=== PATIENT | female | born 1975 | race Two or more races ===

== ENCOUNTER 2018-12-08 12:11 | Inpatient (IN) | payer BC ==
[~2018-12-08] VITALS: Ht 177.8 cm; Wt 90.7 kg
[2018-12-08] VITALS (7 sets, daily range): BP systolic 15–122; BP diastolic 43–70
[2018-12-08 12:39] LABS: Eosinophils # (auto) 0.1 uL; Hematocrit 17.8 % (36.0-46.0); Mean Corpuscular Hemoglobin 14.1 pg (28.0-32.0)
[2018-12-08 12:41] LABS: Basophils # (auto) 0.1 uL; Basophils % (auto) 0.9 % (0.0-2.0); Eosinophils % (auto) 1.2 % (0.0-7.0); Lymphocytes % (auto) 17.8 % (10.0-50.0); Mean Corpuscular Hgb Conc. 26.1 g/dL (32.0-36.0); Mean Corpuscular Volume 54.3 fL (80.0-100.0); Monocytes # (auto) 0.4 uL; Monocytes % (auto) 7.7 % (0.0-12.0); Neutrophils # (auto) 4.1 uL; Neutrophils % (auto) 72.4 % (37.0-80.0); Nucleated Red Blood Cells % 1.2 %; Platelet Count (auto) 302 10^3/uL (140-450); Red Blood Cells 3.28 10^6/uL (4.0-5.20); White Blood Cell 5.7 10^3/uL (4.4-10.8)
[2018-12-08 12:49] LABS: Red Cell Distribution Width 21.5 % (11.8-14.3)
[2018-12-08 12:50] LABS: Hemoglobin 4.6 g/dL (12.2-16.2)
[2018-12-08 13:03] LABS: INR 1.09 (0.9-1.15); Partial Thromboplastin Time 22.2 sec (23.64-32.05)
[2018-12-08 13:08] LABS: Albumin 3.9 g/dL (3.4-5.0); Calcium 8.5 mg/dL (8.5-10.1); Potassium 3.7 mmol/L (3.5-5.1)
[2018-12-08 13:12] LABS: BUN/Creatinine Ratio 21.4; Bilirubin, Total 0.9 mg/dL (0.2-1.0); Total Protein 7.9 g/dL (6.4-8.2)
[2018-12-08] MEDS ORDERED: SODIUM CHLORIDE 0.9% 1,000 ML IV ONE (14:00)
[2018-12-08] MEDS ORDERED: NITROGLYCERIN 0.4 MG SL TAB SL PRN (18:15)
[2018-12-08] MEDS ORDERED: ONDANSETRON HCL 4 MG/2 ML VIAL IV PRN (18:15)
[2018-12-08] MEDS ORDERED: HYDROcodone-ACET 5/325MG TAB PO PRN (18:15)
[2018-12-08] MEDS ORDERED: MORPHINE SULF INJ 2 MG/ML SYRINGE 1ML IV PRN (18:15)
[2018-12-08 22:29] LABS: Eosinophils # (auto) 0.1 uL; Eosinophils % (auto) 1.4 % (0.0-7.0); Lymphocytes # (auto) 1.3 uL; White Blood Cell 6.6 10^3/uL (4.4-10.8)
[2018-12-08 22:31] LABS: Basophils # (auto) 0.1 uL; Hematocrit 20.8 % (36.0-46.0); Lymphocytes % (auto) 20.3 % (10.0-50.0); Mean Corpuscular Hemoglobin 16.4 pg (28.0-32.0); Mean Corpuscular Hgb Conc. 27.7 g/dL (32.0-36.0); Monocytes # (auto) 0.6 uL; Monocytes % (auto) 9.4 % (0.0-12.0); Neutrophils # (auto) 4.5 uL; Neutrophils % (auto) 67.9 % (37.0-80.0); Nucleated Red Blood Cells % 0.2 %; Platelet Count (auto) 282 10^3/uL (140-450); Red Blood Cells 3.53 10^6/uL (4.0-5.20)
[2018-12-08 22:55] LABS: Red Cell Distribution Width 27.1 % (11.8-14.3)
[2018-12-08 22:58] LABS: Hemoglobin 5.8 g/dL (12.2-16.2)
[2018-12-09] VITALS (10 sets, daily range): BP systolic 99–131; BP diastolic 47–82
[2018-12-09 06:40] LABS: Basophils # (auto) 0.1 uL; Basophils % (auto) 0.8 % (0.0-2.0); Eosinophils # (auto) 0.1 uL; Lymphocytes # (auto) 0.9 uL; Mean Corpuscular Volume 63.7 fL (80.0-100.0); Monocytes # (auto) 0.5 uL
[2018-12-09 06:42] LABS: Eosinophils % (auto) 1.2 % (0.0-7.0); Hematocrit 25.9 % (36.0-46.0); Hemoglobin 7.6 g/dL (12.2-16.2); Lymphocytes % (auto) 13.7 % (10.0-50.0); Mean Corpuscular Hemoglobin 18.6 pg (28.0-32.0); Mean Corpuscular Hgb Conc. 29.2 g/dL (32.0-36.0); Monocytes % (auto) 7.4 % (0.0-12.0); Neutrophils % (auto) 76.9 % (37.0-80.0); Nucleated Red Blood Cells % 0.3 %; Platelet Count (auto) 262 10^3/uL (140-450); Red Blood Cells 4.07 10^6/uL (4.0-5.20); White Blood Cell 6.6 10^3/uL (4.4-10.8)
[2018-12-09 06:51] LABS: Calcium 8.7 mg/dL (8.5-10.1); Potassium 4.2 mmol/L (3.5-5.1)
[2018-12-09 07:12] LABS: Red Cell Distribution Width 30.7 % (11.8-14.3)
== END 2018-12-09 08:17 | disposition home or self-care (01) | DRG 812 ==
LOC: ER 12:11 → TELE 12:12
PROVIDERS: ADMIT Hospitalist; ATTEND Hospitalist
PROC: 30233N1 Transfusion of Nonautologous Red Blood Cells into Peripheral Vein, Percutaneous Approach (ICD-10-PCS; principal; 2018-12-08)
DX: D50.0 Iron deficiency anemia secondary to blood loss (chronic) (principal); N92.0 Excessive and frequent menstruation with regular cycle
CPT/HCPCS: 36415; 36430; 71046; 80048; 80053; 85025; 85610; 85730; 86850; 86900; 86901; 86920; 96360; G0378

== ENCOUNTER 2022-02-25 18:15 | Emergency (ER) | payer BC, OTHER ==
[~2022-02-25] VITALS: Ht 177.8 cm; Wt 94.4 kg
[2022-02-25 19:12] LABS: Basophils # (auto) 0 10 ^3/uL (0-0.2); Eosinophils # (auto) 0.1 10 ^3/uL (0-0.8); Monocytes # (auto) 0.5 10 ^3/uL (0-1.3); Neutrophils # (auto) 4.1 10 ^3/uL (1.6-8.6)
[2022-02-25 19:15] LABS: Basophils % (auto) 0.5 % (0.0-2.0); Eosinophils % (auto) 1.9 % (0.0-7.0); Hematocrit 23.4 % (36.0-46.0); Lymphocytes # (auto) 1.1 10 ^3/uL (0.4-5.4); Lymphocytes % (auto) 19.4 % (10.0-50.0); Mean Corpuscular Hemoglobin 15.2 pg (28.0-32.0); Mean Corpuscular Hgb Conc. 26.8 g/dL (32.0-36.0); Mean Corpuscular Volume 56.6 fL (80.0-100.0); Monocytes % (auto) 8.5 % (0.0-12.0); Neutrophils % (auto) 69.7 % (37.0-80.0); Red Blood Cells 4.14 10^6/uL (4.0-5.20); White Blood Cell 5.9 10^3/uL (4.4-10.8)
[2022-02-25 19:16] LABS: Red Cell Distribution Width 20.7 % (11.8-14.3)
[2022-02-25 19:17] LABS: Hemoglobin 6.3 g/dL (12.2-16.2)
[2022-02-25 19:30] LABS: INR 1.06 (0.9-1.15); Partial Thromboplastin Time 23.1 sec (24.6-33.4)
[2022-02-25 19:31] LABS: BUN/Creatinine Ratio 18.2; Calcium 8.7 mg/dL (8.5-10.1); Potassium 4.1 mmol/L (3.5-5.1)
[2022-02-25 19:34] LABS: Bilirubin, Total 0.8 mg/dL (0.2-1.0); Total Protein 7.7 g/dL (6.4-8.2)
[2022-02-25 21:31] VITALS: BP 104/58
[2022-02-25 21:35] VITALS: BP 120/61
[2022-02-25 21:50] VITALS: BP 125/63
[2022-02-25 23:25] VITALS: BP 125/64
[2022-02-26] VITALS: BP 117/62
== END 2022-02-26 00:14 | disposition home or self-care (01) ==
LOC: ER 18:15
DX: D64.9 Anemia, unspecified (principal); R94.31 Abnormal electrocardiogram [ECG] [EKG]; Z98.51 Tubal ligation status
CPT/HCPCS: 36415; 36430; 80053; 85025; 85610; 85730; 86850; 86900; 86901; 86920; 93005; 99285; P9016